=== PATIENT | female | born 1960 | race Caucasian/White ===

== ENCOUNTER 2024-10-30 12:30 | Inpatient (IN) | payer OTHER, SELFPAY ==
[2024-10-30] VITALS (12 sets, daily range): BP systolic 97–150; BP diastolic 51–94; BMI 26.9; BMI 27.9
[2024-10-30] MEDS: ROBITUSSIN AC 10 ML PO ×4 (06:33→18:58)
[2024-10-30] MEDS: DECADRON 6 MG IV (06:45)
[2024-10-30 07:01] LABS: % Basophils 0.6 % (0-2); % Eosinophils 0.4 % (0-6); % Immature Granulocytes 0.5 % (0-0.5); % Lymphocytes 22.5 % (20.5-51.1); % Monocytes 8.9 % (1.7-9.3); % Neutrophils 67.1 % (42.2-75.2); Absolute Basophils 0.1 10^3/uL (0-0.2); Absolute Lymphocytes 1.8 10^3/uL (1.2-3.4); Absolute Monocytes 0.7 10^3/uL (0.1-0.6); Absolute Neutrophils 5.4 10^3/uL (1.4-6.5); Hematocrit 33.8 % (37.0-47.0); Hemoglobin 10.8 g/dL (12.0-16.0); Mean Corpuscular Volume 90.9 fL (81.0-99.0); Mean Platelet Volume 9.8 fL (7.4-10.4); Nucleated Red Blood Cells % 0 %; Platelet Count 296 10^3/uL (130-400); Red Blood Cell Count 3.72 10^6/uL (4.20-5.40); Red Cell Dist. Width 13.8 % (11.5-14.5); White Blood Cell Count 8.1 10^3/uL (4.8-10.8)
[2024-10-30 07:14] LABS: ALT (SGPT) 34 U/L (0-35); AST (SGOT) 37 U/L (14-36); Albumin 3.8 g/dl (3.5-5.0); Alkaline Phosphatase 52 U/L (38-126); Blood Urea Nitrogen 9 mg/dl (7-17); Calcium 8.9 mg/dl (8.4-10.2); Carbon Dioxide 27 mmol/L (22-30); Chloride 106 mmol/L (98-107); Estimated Creatinine Clearance 89 ml/min; Glucose 92 mg/dl (70-99); Magnesium 2.1 mg/dl (1.6-2.3); Potassium 3.6 mmol/L (3.5-5.1); Sodium 140 mmol/L (135-145); Total Bilirubin 0.2 mg/dl (0.2-1.3); Total Protein 6.4 g/dl (6.3-8.2); eGFR > 60.00
[2024-10-30 07:51] LABS: COVID-19 Antigen Negative (Negative)
[2024-10-30] MEDS: ATROVENT NEBULES 1 MG INH (07:51)
[2024-10-30] MEDS: VENTOLIN NEBULES 7.5 MG INH (07:51)
--- NOTE | 2024-10-30 07:54 | ED.GENMED ---
History of Present Illness
General
Chief Complaint: Cough
Source: patient
Exam Limitations: none
Time Seen by Provider: 10/30/24 06:01
Nursing documentation reviewed up to this point in time: agreed with
History of Present Illness
History of Present Illness:
Patient with history of asthma, presents to ED secondary to worsening cough with shortness of breath over the past 10 days. Patient was evaluated by her primary care physician 4 days ago and has been started on Zithromax as well as prednisone,
without improvement in symptoms. Patient has also been using nebulizer at home. Denies fever or chills. Denies headache. Denies sore throat. Denies nausea, vomiting, or diarrhea. Denies rash. Denies back pain. Patient did travel to [place]
over , but states that she was not sick during the trip or shortly afterwards. In addition, patient states that last time she had to come to the hospital with similar symptoms was over 10 years ago.
Past History
Past History
ED Past Medical History: Asthma and Other (Diverticulosis)
ED Past Surgical History: Orthopedic
Social History
Tobacco: Non-smoker
Alcohol: Occasional
Drug: None
Personal:
Living: with family
Employment: Employed
Review of Systems
Review of Systems
Allergies reviewed?: Yes
All Other Systems: ROS reviewed and negative except as documented in HPI and ROS
Constitutional: Reports no symptoms; Denies fever
Respiratory: Reports cough and trouble breathing
Cardiac: Reports no symptoms
ABD/GI: Reports no symptoms; Denies vomiting or diarrhea
Musculoskeletal: Reports no symptoms
Skin: Reports no symptoms
Neurological: Reports no symptoms
Phy Exam
Physical Exam
Physical Exam:
Physical Exam
General: moderate respiratory distress, not acutely ill
Head: nc/at. eomi
Neck: supple. no meningeal signs. normal posterior pharynx
Heart: s1/s2 regular rate and rhythm, no murmur. equal radial pulses.
Lungs: moderate respiratory distress. diminished breath sounds bilaterally
Abdomen: normal bowel sounds. not tender.
Neuro: alert and oriented. no focal neurological deficits
Skin: no rash
Psychiatric: well kept. interactive and cooperative
Extremities: no edema. no calf tenderness.
Course
Orders/Labs/Results
Orders:
Orders
10/30/24 06:18
Dexamethasone Sod Phosphate [Decadron] 6 mg IV NOW STA
Guaifenesin/Codeine Solution [Robitussin AC] 10 ml PO NOW STA
CR Chest - 2 Views Urgent
Comment:
Reason For Exam: cough/sob
10/30/24 06:19
Albuterol Sulfate [Ventolin Nebules] 7.5 mg INH R NOW STA
Ipratropium Nebs [Atrovent Nebules] 1 mg INH R NOW STA
10/30/24 06:33
COVID-19 Antigen Urgent
Source: Nasal Swab
Complete Blood Count/With Diff Urgent
Comprehensive Metabolic Panel Urgent
Magnesium Urgent
Influenza A+B Rapid Molecular Urgent
JESSICA Source: Nasal Swab
Specimen Description:
Respiratory Syncytial Virus Urgent
JESSICA Source: Nasal Swab
Specimen Description:
Date Specimen was Collected: 10/30/24
Time Specimen was Collected: 06:22
10/30/24 09:51
LevoFLOXacin 500 MG/100 ML [Levaquin] 500 mg in 100 ml IV NOW
10/30/24 Lunch
Regular
At Your Request: Full Participation
10/30/24 10:36
Guaifenesin/Codeine Solution [Robitussin AC] 10 ml .ROUTE .[facility]
10/30/24 10:37
Guaifenesin/Codeine Solution [Robitussin AC] 10 ml PO NOW STA
10/30/24 12:11
Admit/Transfer Patient As Directed
Co-Sign Provider:
Level of Care: Inpatient admission
Assign to:: Medical/Surgical
Physician / Group: Mirsky/Hospitalist
Diagnosis: Acute Asthma Exacerbation
Reason for Hospitalization: Acute Asthma Exacerbation
Expected length of stay greater than two midnights?: Yes
ELOS- Estimated Length of Stay in days: 4
I certify the patient meets the requirements for IP care: Yes
PRN Pain Medication Management As Directed
May give lesser potent ordered pain med per pt: Yes
preference::
Protocol:: Medication orders for pain may be administered in a
manner that supports deferring to patient preference
when the pt is:
- Requesting an ordered lesser potent pain medication.
Least to most potent pain medications are defined
as: acetaminophen < NSAID < tramadol < opioids
(morphine, oxycodone, hydromorphone).
- Requesting a lesser dose of the same medication IF
ORDERED.
- Requesting a less intrusive route of administration
if both routes are prescribed by the provider (PO <
IV).
10/30/24 12:13
Code Status As Directed
Resuscitation Status: Full Code
10/30/24 14:14
Bisacodyl [Dulcolax] 10 mg RECTAL [id number] PRN
Docusate W/Senna [Senokot-S] 1 tablet PO BIDPRN PRN
Guaifenesin/Codeine Solution [Robitussin AC] 10 ml PO Q4HPRN PRN
Levalbuterol [Xopenex 0.63 mg Inhalant Solution] 0.63 mg INH R PRN PRN PRN
Polyethylene Glycol Powder [Miralax] 17 grams PO DAILYPRN PRN
10/30/24 14:14
Consult Pulmonary [PULMONARY CONSULT] Routine
Consulting Provider: Lux Lazcano
Was physician already notified: Yes
Sputum Culture [Respiratory Culture/Gram Stain] Routine
JESSICA Source: Sputum
Specimen Description:
Activity As Directed
Activity Level: Out of Bed-Early Mobility
Vital Signs As Directed
Frequency: Per unit guidelines
Xopenex Reason for Use As Directed
Reason for ordering Xopenex instead of Albuterol: tachycardia
O2 Therapy [RESP] Routine
Nasal Cannula Liter Flow: 2 LPM
Titrate/Wean O2 to maintain O2 sat greater than (%): 88
DX Deep Vein Thrombosis Video Routine
10/30/24 16:00
Dexamethasone Sod Phosphate [Decadron] 4 mg IV Q6H
10/30/24 20:00
Budesonide/Formoterol 80/4.5 [Symbicort 80/4.5 Mcg Inhaler] 1 puff INH R BID
Heparin 5,000 units SC Q12
10/30/24 22:54
Urinalysis Reflex To Culture Routine
Date Specimen was Collected: 10/30/24
Time Specimen was Collected: 22:51
10/31/24 05:53
Basic Metabolic Panel IN AM
Complete Blood Count/With Diff IN AM
10/31/24 08:00
Calcium Carbonate [Oscal Adriano 500] 500 mg PO DAILY
Cholecalciferol (Vitamin D3) [VITAMIN D3 (cholecalciferol)] 50 mcg PO DAILY
Desvenlafaxine Succinate [Pristiq] 25 mg PO DAILY
Montelukast Sodium [Singulair] 10 mg PO DAILY
biotin 1,000 mcg PO DAILY
fluticasone propionate 1 spray NASAL DAILY
10/31/24 10:00
LevoFLOXacin 500 MG/100 ML [Levaquin] 500 mg in 100 ml IV Q24H
Abnormal Lab Results
10/30/24
06:33
RBC 3.72 L 10^6/uL
(4.20-5.40)
Hgb 10.8 L g/dL
(12.0-16.0)
Hct 33.8 L %
(37.0-47.0)
MCHC 32.0 L g/dL
(33.0-37.0)
Absolute Monos (auto) 0.7 H 10^3/uL
(0.1-0.6)
AST 37 H U/L
(14-36)
10/30/24 06:33
10/30/24 06:33
Vital Signs
Initial and Last Documented VS:
Initial Vital Signs
Temp Pulse BP Pulse Ox
98.8 F 100 150/76 97
10/30/24 05:19 10/30/24 05:19 10/30/24 05:19 10/30/24 05:19
Last Documented Vital Signs
Temp Pulse Resp BP Pulse Ox
98.1 F 79 17 120/73 97
10/31/24 07:55 10/31/24 07:55 10/31/24 07:55 10/31/24 07:55 10/31/24 07:55
MDM/Problems Addressed
MDM/Problems Addressed:
CXR: NAD. COVID/Flu/RSV negative.
Patient with persistent symptoms, although improved, after 1 hour nebulizer treatment. History and exam consistent with likely an acute bronchitis with underlying asthma exacerbation. Patient will be admitted for further evaluation treatment,
including continued nebulized treatment, IV steroids. Patient will be given Levaquin IV in ED.
*Critical Care Note
Total Time (30-74mins, 75-104mins- exclusive of procedures): Not Applicable
ED Attending Note
-
Portions of this chart may have been created with voice recognition software.� Occasional wrong word or��sound alike� substitutions may have occurred due to the inherent limitations of voice recognition software.
Discharge Plan
Departure
Patient Disposition: Admit
Date of Disposition: 10/30/24
Time of Disposition: 09:53
Admit to: Telemetry
Presentation/result/management discussed w/ accepting MD/DO: Hospitalist
Discharge Problem:
Respiratory distress, Bronchitis, Asthma
Interventions
Interventions:
*Risk Screen - Suicide Last Done: 10/30/24 06:54
*General Assessment Last Done: 10/30/24 06:54
*Neglect/Abuse Screening Last Done: 10/30/24 06:54
ED- Fall Risk Assessment Last Done: 10/30/24 06:54
*ED COVID-19 Vaccine History Last Done: 10/30/24 05:16
*Nursing Disposition Last Done: 10/30/24 13:55
ED- Pulmonary Assessment Last Done: 10/30/24 09:17
Discharge Date and Time
Discharge Date/Time: 10/30/24 13:55
[2024-10-30] MEDS: LEVAQUIN 100 IV (10:12)
--- NOTE | 2024-10-30 10:20 | EDRN ---
Pt coughing a lot and requested more cough medicine at this time.
--- NOTE | 2024-10-30 10:40 | EDRN ---
Dr. Rush in room w/pt at this time.
--- NOTE | 2024-10-30 11:19 | EDRN ---
Pt OOB to BR at this time.
--- NOTE | 2024-10-30 12:41 | EDRN ---
Attempting to call for pt's diet at this time
--- NOTE | 2024-10-30 12:43 | EDRN ---
Diet tray ordered at this time for pt.
--- NOTE | 2024-10-30 12:56 | W.PN.HOSP.TC ---
Today's Communication/Plan
-
steroids. Levaquiin
Assessment / Plan
Assessment / Plan
Hx of asthma dating back to ~age 18
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
Had traveled to [place] in September, Oct 14
Seen by PCP and started on Azithromycin and Prednisone without improvement in symptoms
Asthma is followed by Dr. Valencia at [facility]
Last episode requiring hospitalization was ~10 yrs ago
chronic Rt sided lymphadenopathy post lumpectomy
Bowel resection for diverticulosis 2013
P: empiric Levaquin
Decadron
Pulm consult
see dictated note
full code
Anticipated Discharge: > 48 hours
Subjective/Interval History
-
Date of Service: October 30, 2024
Cough with sob
Objective Data
-
Labs:
Laboratory Results
10/30/24
06:33
WBC 8.1
Hgb 10.8 L
Hct 33.8 L
Plt Count 296
Sodium 140
Potassium 3.6
Chloride 106
Carbon Dioxide 27
BUN 9
Creatinine 0.6
Glucose 92
Calcium 8.9
Total Bilirubin 0.2
AST 37 H
ALT 34
Alkaline Phosphatase 52
Vital Signs:
Vital Signs
Temp Pulse Resp BP Pulse Ox
98.8 F 97 17 116/76 92
10/30/24 05:19 10/30/24 12:00 10/30/24 12:00 10/30/24 12:00 10/30/24 11:00
Review of Systems
-
History Source: Patient and Family ( at bedside)
Constitutional: Denies Fever
EENT: Reports No Symptoms Reported
Respiratory: Reports Cough, Trouble Breathing and Wheezing
Cardiac: Reports No Symptoms; Denies Chest Pain
Abdomen/GI: Reports No Symptoms
Musculoskeletal: Reports No Symptoms
Physical Exam
-
General: Well Developed, Well Nourished and Appears in Distress
HEENT: Normocephalic, Atraumatic and Moist Mucous Membranes
Respiratory: Wheezes (poor air movement with mid-end expiratory wheeze and coughing spasms on forced expiration)
Cardiac: Regular Rhythm and S1/S2
GI: Soft, Nontender and Nondistended
Musculoskeletal: No Clubbing, No Cyanosis and No Edema
--- NOTE | 2024-10-30 14:35 | PTCARENOTE ---
Received patient from ED. Patient here for Acute Bronchitis and Asthma Exacerbation. Oriented to unit. AAOX3.
[2024-10-30] MEDS: TYLENOL 650 MG PO ×2 (14:54→18:58)
[2024-10-30] MEDS: XOPENEX 0.63 MG INHALANT SOLUTION INH (14:59)
--- NOTE | 2024-10-30 16:19 | CON.PUL ---
Consultation
Consultation Request
Date/Time Consultation Requested: 10/30/2024
Date/Time Consultation Performed: 10/30/2024
Requesting Provider: Dr. Rush
Performing Provider: Dr. Lux Tran
Reason for Consultation: Acute asthma exacerbation
Medical History
-
History of Present Illness:
64-year-old woman with history of asthma since age 18, compliance with medication, develop cough about 9 to 10 days ago. She recently returned from [place] on October 14. She was prescribed a course of azithromycin and a prednisone without
improvement.
She has chronic asthma being followed at [facility] by Dr. Valencia.
She states that her last hospital stay for asthma was about 10 years ago.
Main symptom is coughing, nasal congestion, postnasal drip, frequent sensation of clearing throat.
is sick after coming from a trip.
Past Medical History
Past Medical History: Other (See assessment and plan)
Social History
Tobacco: Non-smoker
Alcohol: None
Drug: None
Family History
Family History: Reviewed & Not Pertinent
Allergies / Home Medications
Allergies
Allergy/AdvReac Type Severity Reaction Status Date / Time
amoxicillin trihydrate Allergy Anaphylaxis Verified 10/30/24 05:15
[From Augmentin]
Penicillins Allergy Hives Verified 10/30/24 05:15
potassium clavula Allergy Anaphylaxis Verified 10/30/24 05:15
*RETIRED-08/04/12
[From Augmentin]
vancomycin Allergy Anaphylaxis Verified 10/30/24 05:15
Home Medications
�Medication �Instructions �Recorded �Confirmed �Last Taken �Type
biotin 1,000 mcg chewable tablet 1,000 mcg PO DAILY Supplement 08/06/23 10/30/24 Unknown History
budesonide-formoterol HFA 80 1 puff inhalation BID 08/06/23 10/30/24 Unknown History
mcg-4.5 mcg/actuation aerosol Lung/Breathing Issues
inhaler (Symbicort)
calcium carbonate (Calcium 600) 600 mg PO DAILY Supplement 08/06/23 10/30/24 Unknown History
desvenlafaxine succinate 25 mg 25 mg PO DAILY Depression 08/06/23 10/30/24 Unknown History
tablet,extended release 24 hr
(Pristiq)
levalbuterol HCl 0.63 mg/3 mL 0.63 mg inhalation PRN PRN SOB 08/06/23 10/30/24 Unknown History
solution for nebulization
montelukast 10 mg tablet 10 mg PO DAILY Lung/Breathing 08/06/23 10/30/24 Unknown History
(Singulair) Issues
cholecalciferol (vitamin D3) 50 50 mcg PO DAILY Supplement 10/30/24 10/30/24 Unknown History
mcg (2,000 unit) tablet
fluticasone propionate 50 1 spray intranasal DAILY Allergies 10/30/24 10/30/24 Unknown History
mcg/actuation nasal
spray,suspension
Review of Systems
-
History Source: Patient
All other systems: Negative unless noted
Vitals / Labs / Diagnostic Testing
Vital Signs
Temp Pulse Resp BP Pulse Ox
99.1 F 104 18 120/55 97
10/30/24 14:34 10/30/24 14:59 10/30/24 14:59 10/30/24 14:34 10/30/24 14:59
Lab Data
10/30/24 06:33
10/30/24 06:33
Microbiology
10/30/24 06:33 Nasal Swab Influenza Types A & B (GERRI) - Final
Negative for Influenza A & B, NAAT
Negative results must be combined with clinical observations
and patient history.
Nucleic Acid Amplification test (NAAT)performed on the
[employer] platform.
10/30/24 06:33 Nasal Swab Respiratory Syncytial Virus Culture - Final
Negative for Respiratory Syncytial Virus.
A false negative result may be obtained with a specimen
collected early in the acute phase. If symptoms persist, a
new specimen should be tested.
Diagnostic Testing:
Physical Exam
-
HEENT: Normocephalic
Cardiovascular: S1/S2
Respiratory: Wheeze and Rhonchi
GI: Soft and Non Distended
Neurology: Awake, AO x 3 and No Motor Deficits
Skin: Warm
General: Comfortable
Assessment
-
64-year-old woman with history of longstanding asthma, usually well-controlled. Started with symptoms including coughing, chest congestion and shortness of breath about 9 days ago. In the outpatient setting received prednisone and azithromycin
without improvement. She is here for further evaluation.
Acute asthma exacerbation.
Not documented peripheral eosinophilia
Chest x-ray 10/30/2024: Mild right hemidiaphragm elevation. Minimal left basilar opacity suggestive of atelectasis.
RSV negative
Influenza negative
COVID-negative
Normocytic anemia unclear etiology
Conditions present prior admission:
Chronic asthma since age 18 followed at [facility]
Symbicort/montelukast/Flonase
Prior history of right breast lumpectomy
History of bowel resection for diverticulosis 2013
Assessment and plan:
Agree with current plan
IV corticosteroids
Hold Symbicort: With significant coughing patient unable to perform adequate maneuver
Transition to Pulmicort twice a day
DuoNebs 4 times a day
Patient has a nebulizer at home-likely I would recommend to discharge her on these medications until symptoms clear.
Continue montelukast
Continue antitussives
Cepacol lozenges
Loratadine as the patient has postnasal drip
There is no Flonase or Astelin available in the hospital.
-
So far no evidence for pneumonia on chest x-ray, patient afebrile without leukocytosis. Will complete 5 days of antibiotics with Levaquin only. If continues to improve consider transition to oral in the next 24 hours.
Infectious workup so far negative
Sputum culture pending
Antitussives as needed
-
DVT prophylaxis-heparin subcu.
-
After discharge patient will continue to follow-up with [facility].
[2024-10-30] MEDS: DECADRON 4 MG IV ×2 (17:23→21:28)
[2024-10-30] MEDS: ANESTHETIC LOZENGE 1 LOZENGE PO (18:58)
[2024-10-30] MEDS: CLARITIN 10 MG PO (18:58)
[2024-10-30] MEDS: DUONEB 3 ML INH (20:01)
[2024-10-30] MEDS: PULMICORT 0.5 MG INH (20:01)
[2024-10-30] MEDS: MELATONIN 5 MG PO (22:51)
[2024-10-30 23:11] LABS: Urine Albumin Negative (Neg - Trace); Urine Bilirubin Negative (Negative); Urine Character Clear (Clear); Urine Color Straw; Urine Glucose Negative (Negative); Urine Ketone Negative (Negative); Urine Leukocyte Negative (Negative); Urine Nitrite Negative (Negative); Urine Occult Blood Negative (Negative); Urine Specific Gravity 1.005 (<1.030); Urine Urobilinogen Negative (Neg - 1+)
[2024-10-31] MEDS: TYLENOL 650 MG PO ×6 (00:36→20:44)
[2024-10-31] MEDS: ROBITUSSIN AC 10 ML PO ×6 (00:36→20:44)
[2024-10-31] MEDS: DECADRON 4 MG IV ×4 (04:34→21:41)
[2024-10-31] MEDS: ANESTHETIC LOZENGE 1 LOZENGE PO ×2 (04:35→21:46)
[2024-10-31] MEDS: XOPENEX 0.63 MG INHALANT SOLUTION INH (04:37)
[2024-10-31 06:31] LABS: % Basophils 0.1 % (0-2); % Immature Granulocytes 1.1 % (0-0.5); % Lymphocytes 11.3 % (20.5-51.1); % Monocytes 3.7 % (1.7-9.3); % Neutrophils 83.8 % (42.2-75.2); Absolute Immature Granulocytes 0.1 10^3/uL (0-0.05); Absolute Lymphocytes 0.9 10^3/uL (1.2-3.4); Absolute Monocytes 0.3 10^3/uL (0.1-0.6); Absolute Neutrophils 6.3 10^3/uL (1.4-6.5); Hematocrit 33.7 % (37.0-47.0); Hemoglobin 10.9 g/dL (12.0-16.0); Mean Corp Hgb Conc. 32.3 g/dL (33.0-37.0); Mean Corpuscular Hgb 28.8 pg (27.0-31.0); Mean Corpuscular Volume 89.2 fL (81.0-99.0); Mean Platelet Volume 9.8 fL (7.4-10.4); Nucleated Red Blood Cells % 0 %; Platelet Count 302 10^3/uL (130-400); Red Blood Cell Count 3.78 10^6/uL (4.20-5.40); Red Cell Dist. Width 13.9 % (11.5-14.5); White Blood Cell Count 7.6 10^3/uL (4.8-10.8)
[2024-10-31 07:07] LABS: Blood Urea Nitrogen 9 mg/dl (7-17); Calcium 8.8 mg/dl (8.4-10.2); Carbon Dioxide 27 mmol/L (22-30); Chloride 104 mmol/L (98-107); Estimated Creatinine Clearance 101 ml/min; Glucose 138 mg/dl (70-99); Sodium 139 mmol/L (135-145); eGFR > 60.00
[2024-10-31] MEDS: DUONEB 3 ML INH ×4 (07:45→19:13)
[2024-10-31] MEDS: PULMICORT 0.5 MG INH ×2 (07:45→19:13)
[2024-10-31 07:55] VITALS: BP 120/73
[2024-10-31] MEDS: CLARITIN 10 MG PO (08:34)
[2024-10-31] MEDS: SINGULAIR 10 MG PO (08:34)
[2024-10-31] MEDS: OSCAL CAL 500 500 MG PO (08:34)
[2024-10-31] MEDS: PRISTIQ 25 MG PO (08:34)
[2024-10-31] MEDS: VITAMIN D3 (cholecalciferol) 50 MCG PO (08:34)
[2024-10-31] MEDS: LEVAQUIN 100 IV (11:14)
--- NOTE | 2024-10-31 12:50 | W.PN.PUL3 ---
Today's Communication / Plan
-
Transition to oral antibiotics and complete 5 days
Continue nebulizer-recommend maintaining this at home until she improves. Then can transition back to her Symbicort
Continue dexamethasone without change
Hopefully can transition to prednisone tomorrow if clinically improved
Assessment
-
64-year-old woman with history of longstanding asthma, usually well-controlled. Started with symptoms including coughing, chest congestion and shortness of breath about 9 days ago. In the outpatient setting received prednisone and azithromycin
without improvement. She is here for further evaluation.
Acute asthma exacerbation-suspect tracheobronchitis.
Not documented peripheral eosinophilia
Chest x-ray 10/30/2024: Mild right hemidiaphragm elevation. Minimal left basilar opacity suggestive of atelectasis.
RSV negative
Influenza negative
COVID-negative
Normocytic anemia unclear etiology
Conditions present prior admission:
Chronic asthma since age 18 followed at [facility]
Symbicort/montelukast/Flonase
Prior history of right breast lumpectomy
History of bowel resection for diverticulosis 2013
Assessment and plan:
Continue with current plan-patient reports that she is clinically improved.
IV corticosteroids-dexamethasone 4 mg IV every 6 without change. If continues to improve may consider transition to prednisone tomorrow. Not significantly bronchospastic but coughing.
Hold Symbicort: With significant coughing patient unable to perform adequate maneuver
Continue Pulmicort nebulizer
DuoNebs 4 times a day
Patient has a nebulizer at home-likely I would recommend to discharge her on these medications until symptoms clear.
Continue montelukast
Continue antitussives
Cepacol lozenges
Loratadine as the patient has postnasal drip
There is no Flonase or Astelin available in the hospital.
-
So far no evidence for pneumonia on chest x-ray, patient afebrile without leukocytosis. Will complete 5 days of antibiotics with Levaquin only. Will transition to oral Levaquin today.
Infectious workup so far negative
Sputum culture pending
Antitussives as needed
-
DVT prophylaxis-heparin subcu.
-
After discharge patient will continue to follow-up with [facility].
Subjective Data
-
Date of Service:
Date of Service: October 31, 2024
Chief Complaint: Pulmonary Follow Up (Acute asthma exacerbation-possible bronchitis)
Subjective:
Cough, shortness of breath improved.
No significant phlegm production
Denies hemoptysis
Review of Systems
General: Fever (n)
Cardiopulmonary: Dyspnea, Cough and Wheezing
GI: Abdominal Pain (n) and Nausea (n)
Neuro: Headache (n)
Objective Data
Data Reviewed
Vital Signs / I&O / Oxygen:
Vital Signs
Temp Pulse Resp BP Pulse Ox
98.1 F 107 16 120/73 94
10/31/24 07:55 10/31/24 12:14 10/31/24 12:14 10/31/24 07:55 10/31/24 12:14
Intake and Output
10/30/24 10/31/24 11/01/24
06:59 06:59 06:59
Intake Total 1320 / 1320
Balance 1320 / 1320
SaO2 94
Physical Exam
General: Comfortable
HEENT: Normocephalic
Cardiovascular: S1-S2
Respiratory: Wheeze and Non-Labored Respirations
GI: Soft and Non Distended
Neurology: Awake, Alert, AO x 3 and No Motor Deficits
Skin: Warm
Labs/Micro/Reports
Lab Data
10/31/24 05:53
10/31/24 05:53
Microbiology
10/30/24 06:33 Nasal Swab Influenza Types A & B (GERRI) - Final
Negative for Influenza A & B, NAAT
Negative results must be combined with clinical observations
and patient history.
Nucleic Acid Amplification test (NAAT)performed on the
[employer] platform.
10/30/24 06:33 Nasal Swab Respiratory Syncytial Virus Culture - Final
Negative for Respiratory Syncytial Virus.
A false negative result may be obtained with a specimen
collected early in the acute phase. If symptoms persist, a
new specimen should be tested.
--- NOTE | 2024-10-31 14:20 | CM ---
CM reviewed chart. Pt admitted for acute bronchitis with acute asthma exacerbation currently- cont duo-nebs, iv steroids and inhaler. 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 Encourage IS use at the top of every hour. Anticipate home, no needs at dc.
Family to transport.
CM/SW will continue to follow to ensure a safe and timely discharge.
[2024-10-31 15:27] VITALS: BP 108/73
--- NOTE | 2024-10-31 15:43 | W.PN.HOSP.TC ---
Today's Communication/Plan
-
hopefully begin cautious taper of steroids next 24 hrs. Await sputum cx
Assessment / Plan
Assessment / Plan
Hx of asthma dating back to ~age 18
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
Had traveled to [place] in September, returning Oct 14
Seen by PCP and started on Azithromycin and Prednisone without improvement in symptoms
Asthma is followed by Dr. Valencia at [facility]
Last episode requiring hospitalization was ~10 yrs ago
Raising thick, discolored phlegm, requested nurse send sample to lab for analysis. Moving air much better than yesterday, but still with significant coughing spasms. Pending response over next 24 would like to begin taper of steroids
chronic Rt sided lymphadenopathy post lumpectomy
Bowel resection for diverticulosis 2013
Anemia
Hgb 10.9 lower than would expect, will order Fe studies
P: empiric Levaquin pending cx data
Decadron
Pulm consult
full code
Anticipated Discharge: 24 - 48 hours
Subjective/Interval History
-
Date of Service: October 31, 2024
Still sob, but believes a little better than yesterday
Objective Data
-
Labs:
Laboratory Results
10/31/24
05:53
WBC 7.6
Hgb 10.9 L
Hct 33.7 L
Plt Count 302
Sodium 139
Potassium 4.0
Chloride 104
Carbon Dioxide 27
BUN 9
Creatinine 0.6
Glucose 138 H
Calcium 8.8
Vital Signs:
Vital Signs
Temp Pulse Resp BP Pulse Ox
98.2 F 80 17 108/73 97
10/31/24 15:27 10/31/24 15:27 10/31/24 15:27 10/31/24 15:27 10/31/24 15:27
I&O
10/30/24 10/31/24 11/01/24
06:59 06:59 06:59
Intake Total 1320 / 1320
Balance 1320 / 1320
Review of Systems
-
History Source: Patient
Constitutional: Denies Fever
EENT: Reports No Symptoms Reported
Respiratory: Reports Cough, Trouble Breathing and Wheezing
Cardiac: Reports No Symptoms; Denies Chest Pain
Abdomen/GI: Reports No Symptoms
Musculoskeletal: Reports No Symptoms
Physical Exam
-
General: Well Developed, Well Nourished and Appears in Distress
HEENT: Normocephalic, Atraumatic and Moist Mucous Membranes
Respiratory: Wheezes (improved air movement, wheezes ar more prominent, coughing nw only on forced expiration)
Cardiac: Regular Rhythm and S1/S2
GI: Soft, Nontender and Nondistended
Musculoskeletal: No Clubbing, No Cyanosis and No Edema
[2024-10-31] MEDS: MELATONIN 5 MG PO (21:41)
[2024-10-31 23:19] VITALS: BP 135/70
[2024-11-01] MEDS: TYLENOL 650 MG PO ×5 (00:48→21:06)
[2024-11-01] MEDS: ROBITUSSIN AC 10 ML PO ×5 (00:48→21:07)
[2024-11-01] MEDS: XOPENEX 0.63 MG INHALANT SOLUTION INH (01:58)
[2024-11-01] MEDS: DECADRON 4 MG IV ×4 (03:00→21:07)
[2024-11-01 05:51] LABS: Blood Urea Nitrogen 11 mg/dl (7-17); Carbon Dioxide 30 mmol/L (22-30); Chloride 105 mmol/L (98-107); Estimated Creatinine Clearance 101 ml/min; Glucose 124 mg/dl (70-99); Iron 59 ug/dl (37-170); Potassium 4.9 mmol/L (3.5-5.1); Sodium 138 mmol/L (135-145); eGFR > 60.00
[2024-11-01 06:01] LABS: Percent Saturation 21 % (20-50); Total Iron Binding Capacity 274 ug/dl (265-497)
[2024-11-01 06:28] LABS: Ferritin 37.9 ng/ml (11.1-264.0)
[2024-11-01 06:59] LABS: Vitamin B12 458 pg/ml (239-931)
[2024-11-01] MEDS: PULMICORT 0.5 MG INH ×2 (07:14→19:39)
[2024-11-01] MEDS: DUONEB 3 ML INH ×4 (07:14→19:39)
[2024-11-01] MEDS: PRISTIQ 25 MG PO (07:34)
[2024-11-01] MEDS: SINGULAIR 10 MG PO (07:34)
[2024-11-01] MEDS: CLARITIN 10 MG PO (07:35)
[2024-11-01] MEDS: VITAMIN D3 (cholecalciferol) 50 MCG PO (07:35)
[2024-11-01] MEDS: OSCAL CAL 500 500 MG PO (07:35)
[2024-11-01] MEDS: LEVAQUIN 500 MG PO (07:36)
[2024-11-01 07:45] VITALS: BP 121/70
[2024-11-01 08:08] LABS: % Basophils 0.1 % (0-2); % Lymphocytes 11.8 % (20.5-51.1); % Monocytes 5.1 % (1.7-9.3); Absolute Immature Granulocytes 0.1 10^3/uL (0-0.05); Absolute Lymphocytes 1.2 10^3/uL (1.2-3.4); Absolute Monocytes 0.5 10^3/uL (0.1-0.6); Absolute Neutrophils 8.2 10^3/uL (1.4-6.5); Hemoglobin 11.4 g/dL (12.0-16.0); Mean Corp Hgb Conc. 31.7 g/dL (33.0-37.0); Mean Corpuscular Hgb 28.6 pg (27.0-31.0); Mean Corpuscular Volume 90.2 fL (81.0-99.0); Mean Platelet Volume 9.5 fL (7.4-10.4); Nucleated Red Blood Cells % 0 %; Platelet Count 320 10^3/uL (130-400); Red Blood Cell Count 3.99 10^6/uL (4.20-5.40)
--- NOTE | 2024-11-01 09:09 | W.PN.PUL.V3 ---
Today's Communication / Plan
-
No change in steroids
Antitussives
Intensify mucolytic's
Continue nebulizers
Outpatient pulmonary follow-up
Assessment
-
64-year-old woman with history of longstanding asthma, usually well-controlled. Started with symptoms including coughing, chest congestion and shortness of breath about 9 days ago. In the outpatient setting received prednisone and azithromycin
without improvement. She is here for further evaluation.
Acute asthma exacerbation-suspect tracheobronchitis.
Not documented peripheral eosinophilia
Chest x-ray 10/30/2024: Mild right hemidiaphragm elevation. Minimal left basilar opacity suggestive of atelectasis.
RSV negative
Influenza negative
COVID-negative
Normocytic anemia unclear etiology
Conditions present prior admission:
Chronic asthma since age 18 followed at [facility]
Symbicort/montelukast/Flonase
Prior history of right breast lumpectomy
History of bowel resection for diverticulosis 2013
Plan
Respiratory status still somewhat tenuous with coughing paroxysms, difficulties mobilizing secretions
Supplemental oxygen as needed
Mucolytic's
Singulair continues
No change in Decadron 4 mg IV every 6 hours
On Symbicort at home-on hold
Claritin continues
Pulmicort nebulizers
DuoNebs
Antitussives
Analgesia per primary service
Saline nasal irrigations
Check cultures
Levofloxacin-finite course
DVT prophylaxis-heparin subcu.
Would recommend LAMA added to regiment and consideration towards Biologics-reviewed with patient
Reviewed with nursing as well as primary team
After discharge patient will continue to follow-up with [facility]-offered local [id number] followed with Dr. Osullivan-states did not get return phone calls from nursing in front services agent in a timely manner that is why she
transferred-she would prefer to be local
Subjective Data
-
Date of Service:
Date of Service: November 01, 2024
Chief Complaint: Pulmonary Follow Up (Acute asthma exacerbation-possible bronchitis) and Dyspnea Follow Up
Subjective:
Patient states that she had a rough night, chest congestion, 'choking' on her mucus, still with some wheezing, no abdominal pain, complains of chest wall pain from coughing-would like to try ibuprofen
Review of Systems
General: Other (Per HPI)
Objective Data
Data Reviewed
Vital Signs / I&O:
Vital Signs
Temp Pulse Resp BP Pulse Ox
97.9 F 80 16 121/70 98
10/31/24 23:19 11/01/24 07:45 11/01/24 07:45 11/01/24 07:45 11/01/24 07:45
Intake and Output
10/31/24 11/01/24 11/02/24
06:59 06:59 06:59
Intake Total 1320 / 1320 1620 / 1620
Balance 1320 / 1320 1620 / 1620
SaO2: 98
Physical Exam
General: Respiratory Distress (n) and Comfortable
HEENT: Normocephalic
Cardiovascular: Regular Rhythm and Murmur (n)
Respiratory: Wheeze (Diffuse forced expiratory), Non-Labored Respirations and Accessory Resp Muscle Use (n)
GI: Soft and Non Distended
Neurology: Awake, Alert, AO x 3 and No Motor Deficits
Skin: Warm, Good Color, Cyanosis (n), Jaundice (n) and Rash (n)
Labs/Micro/Reports
Lab Data
11/01/24 05:05
11/01/24 05:05
Microbiology
10/31/24 11:53 Sputum Gram Stain - Preliminary
10/30/24 06:33 Nasal Swab Influenza Types A & B (GERRI) - Final
Negative for Influenza A & B, NAAT
Negative results must be combined with clinical observations
and patient history.
Nucleic Acid Amplification test (NAAT)performed on the
[employer] platform.
10/30/24 06:33 Nasal Swab Respiratory Syncytial Virus Culture - Final
Negative for Respiratory Syncytial Virus.
A false negative result may be obtained with a specimen
collected early in the acute phase. If symptoms persist, a
new specimen should be tested.
[2024-11-01] MEDS: MUCINEX 1200 MG PO (09:35)
[2024-11-01] MEDS: ANESTHETIC LOZENGE 1 LOZENGE PO (10:38)
--- NOTE | 2024-11-01 12:56 | W.PN.HOSP.TC ---
Today's Communication/Plan
-
continue IV steroids without change
continue Abx
mucolytics/nebs etc as outlined
Assessment / Plan
Assessment / Plan
Assessment:
Acute asthma exacerbation, suspected tracheobronchitis
Chronic asthma since age 18 followed at [facility]
- ongoing respiratory symptoms with coughing, difficult to mobilize mucous
- continue IV steroids
- continue Levaquin x 5 days
- continue pulmicort/nebs
- continue anti-tussives, IS, Acapella
- analgesia
- continue Singulair. Holding home Symbicort/Flonase
Prior history of right breast lumpectomy
History of bowel resection for diverticulosis 2013
Anemia
- indices ok
- OP f/u
DVT ppx: SC heparin
Code: Full
Anticipated Discharge: 24 - 48 hours
Subjective/Interval History
-
Date of Service: November 01, 2024
reports congestion, 'choking' on mucous, reports chest/abdomen discomfort in setting of cough
no fevers
Objective Data
-
Labs:
Laboratory Results
11/01/24
05:05
WBC 10.0
Hgb 11.4 L
Hct 36.0 L
Plt Count 320
Sodium 138
Potassium 4.9
Chloride 105
Carbon Dioxide 30
BUN 11
Creatinine 0.6
Glucose 124 H
Calcium 9.0
Vital Signs:
Vital Signs
Temp Pulse Resp BP Pulse Ox
97.9 F 83 15 121/70 92
10/31/24 23:19 11/01/24 11:12 11/01/24 11:12 11/01/24 07:45 11/01/24 11:12
I&O
10/31/24 11/01/24 11/02/24
06:59 06:59 06:59
Intake Total 1320 / 1320 1620 / 1620
Balance 1320 / 1320 1620 / 1620
Physical Exam
-
General: No Apparent Distress
HEENT: Normocephalic and Atraumatic
Respiratory: Wheezes and Decreased Breath Sounds
Cardiac: Regular Rhythm and S1/S2
Genito-urinary: No Costovertebral Tender
Musculoskeletal: No Edema
Neuro: AO x 3
Hematologic / Lymphatic: No Lymphadenopathy
Psych: Calm
Data Reviewed
-
Total Time Spent with Patient (in minutes): 42
Labs: Labs Reviewed by me
[2024-11-01] MEDS: TESSALON PERLES 200 MG PO ×3 (14:25→23:08)
--- NOTE | 2024-11-01 15:46 | CM ---
Spoke with pt in room . She lives with Regan . She is independent.
She has a Nebulizer at home.
Offered Vn she declined need.
PLAN Home no needs
[2024-11-01 16:11] VITALS: BP 118/65
[2024-11-01] MEDS: MELATONIN 5 MG PO (21:06)
[2024-11-01 23:00] VITALS: BP 118/64
[2024-11-02] MEDS: XOPENEX 0.63 MG INHALANT SOLUTION INH (02:49)
[2024-11-02] MEDS: TYLENOL 650 MG PO ×4 (02:57→22:43)
[2024-11-02] MEDS: ROBITUSSIN AC 10 ML PO ×4 (02:58→19:39)
[2024-11-02] MEDS: DECADRON 4 MG IV ×4 (03:00→22:59)
[2024-11-02 07:26] LABS: Hematocrit 36.8 % (37.0-47.0); Hemoglobin 11.8 g/dL (12.0-16.0); Mean Corp Hgb Conc. 32.1 g/dL (33.0-37.0); Mean Corpuscular Hgb 28.8 pg (27.0-31.0); Mean Corpuscular Volume 89.8 fL (81.0-99.0); Mean Platelet Volume 9.3 fL (7.4-10.4); Platelet Count 338 10^3/uL (130-400); Red Cell Dist. Width 13.9 % (11.5-14.5); White Blood Cell Count 12.7 10^3/uL (4.8-10.8)
[2024-11-02] MEDS: PULMICORT 0.5 MG INH ×2 (07:55→19:14)
[2024-11-02] MEDS: DUONEB 3 ML INH ×4 (07:55→19:14)
[2024-11-02 08:09] LABS: Blood Urea Nitrogen 12 mg/dl (7-17); Calcium 8.8 mg/dl (8.4-10.2); Carbon Dioxide 28 mmol/L (22-30); Chloride 104 mmol/L (98-107); Estimated Creatinine Clearance 101 ml/min; Glucose 116 mg/dl (70-99); Potassium 4.6 mmol/L (3.5-5.1); Sodium 139 mmol/L (135-145); eGFR > 60.00
[2024-11-02] MEDS: SINGULAIR 10 MG PO (08:20)
[2024-11-02] MEDS: PRISTIQ 25 MG PO (08:20)
[2024-11-02] MEDS: LEVAQUIN 500 MG PO (08:20)
[2024-11-02] MEDS: OSCAL CAL 500 500 MG PO (08:20)
[2024-11-02] MEDS: VITAMIN D3 (cholecalciferol) 50 MCG PO (08:21)
[2024-11-02] MEDS: CLARITIN 10 MG PO (08:21)
[2024-11-02] MEDS: OCEAN, SALINE MIST 2 SPRAYS NASAL (08:34)
[2024-11-02 08:42] VITALS: BP 115/80
--- NOTE | 2024-11-02 09:49 | W.PN.PUL.V3 ---
Today's Communication / Plan
-
Decrease Decadron
Hopefully change to prednisone 60 mg daily with slow taper in the next 24 hours
Assessment
-
64-year-old woman with history of longstanding asthma, usually well-controlled. Started with symptoms including coughing, chest congestion and shortness of breath about 9 days ago. In the outpatient setting received prednisone and azithromycin
without improvement. She is here for further evaluation.
Acute asthma exacerbation-suspect tracheobronchitis.
Not documented peripheral eosinophilia
Chest x-ray 10/30/2024: Mild right hemidiaphragm elevation. Minimal left basilar opacity suggestive of atelectasis.
RSV negative
Influenza negative
COVID-negative
Normocytic anemia unclear etiology
Conditions present prior admission:
Chronic asthma since age 18 followed at [facility]
Symbicort/montelukast/Flonase
Prior history of right breast lumpectomy
History of bowel resection for diverticulosis 2013
Plan
Respiratory status improved but continues with coughing paroxysms, difficulties mobilizing secretions
Supplemental oxygen as needed-attempt to wean to room air
Mucolytic's
Singulair continues
Decadron-decrease to every 8 hours-hopefully can change to prednisone 60 mg with slow taper in the next 24 hours
On Symbicort at home-on hold
Claritin continues
Pulmicort nebulizers
DuoNebs
Antitussives
Analgesia per primary service
Saline nasal irrigations
Check cultures
Levofloxacin-finite course
DVT prophylaxis-heparin subcu.
Would recommend LAMA added to regiment and consideration towards Biologics-reviewed with patient-i.e. Symbicort plus Spiriva or changed to Trelegy 200 or Breztri
Reviewed with nursing as well as primary team
After discharge patient will continue to follow-up with [facility]-offered local [id number] followed with Dr. 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
transferred-she would prefer to be local
Subjective Data
-
Date of Service:
Date of Service: November 02, 2024
Chief Complaint: Pulmonary Follow Up (Acute asthma exacerbation-possible bronchitis) and Dyspnea Follow Up
Subjective:
Feels better, slept better, still has some chest congestion, difficulties mobilizing secretions, still with some wheezing, no abdominal pain, rib pain from coughing improved
Review of Systems
General: Other (Per HPI)
Objective Data
Data Reviewed
Vital Signs / I&O:
Vital Signs
Temp Pulse Resp BP Pulse Ox
99.1 F 75 16 115/80 98
11/01/24 23:00 11/02/24 08:42 11/02/24 08:42 11/02/24 08:42 11/02/24 08:42
Intake and Output
11/01/24 11/02/24 11/03/24
06:59 06:59 06:59
Intake Total 1620 / 1620 480 / 480
Balance 1620 / 1620 480 / 480
SaO2: 98
Physical Exam
General: Respiratory Distress (n) and Comfortable
HEENT: Normocephalic
Cardiovascular: Regular Rhythm and Murmur (n)
Respiratory: Wheeze (Diffuse forced expiratory), Non-Labored Respirations and Accessory Resp Muscle Use (n)
GI: Soft and Non Distended
Neurology: Awake, Alert, AO x 3 and No Motor Deficits
Skin: Warm, Good Color, Cyanosis (n), Jaundice (n) and Rash (n)
Labs/Micro/Reports
Lab Data
11/02/24 07:00
11/02/24 07:00
Microbiology
10/31/24 11:53 Sputum Respiratory Culture - Final
Usual Respiratory Sachi
10/31/24 11:53 Sputum Gram Stain - Final
10/30/24 06:33 Nasal Swab Influenza Types A & B (GERRI) - Final
Negative for Influenza A & B, NAAT
Negative results must be combined with clinical observations
and patient history.
Nucleic Acid Amplification test (NAAT)performed on the
[employer] platform.
10/30/24 06:33 Nasal Swab Respiratory Syncytial Virus Culture - Final
Negative for Respiratory Syncytial Virus.
A false negative result may be obtained with a specimen
collected early in the acute phase. If symptoms persist, a
new specimen should be tested.
[2024-11-02] MEDS: TESSALON PERLES 200 MG PO ×3 (10:25→22:44)
--- NOTE | 2024-11-02 11:21 | W.PN.HOSP.TC ---
Today's Communication/Plan
-
Reduce IV Decadron 4mg q8h
continue Levaquin
Prn Motrin (+ GI prophylaxis)
Prn Tylenol
Follow pulm recs
Assessment / Plan
Assessment / Plan
Assessment:
Acute asthma exacerbation, suspected tracheobronchitis
Chronic asthma since age 18 followed at [facility]
- ongoing respiratory symptoms with coughing, difficult to mobilize mucous
- continue IV Decadron, reduced to q8h dosing
- continue Levaquin, day 4/
- continue pulmicort/nebs
- continue anti-tussives, IS, Acapella
- analgesia (prn Motrin, prn Tylenol)
- continue Singulair. Holding home Symbicort/Flonase
- appreciate Pulmonary recs
Prior history of right breast lumpectomy
History of bowel resection for diverticulosis 2013
Anemia
- indices ok
- OP f/u
DVT ppx: SC heparin
Code: Full
Anticipated Discharge: 24 - 48 hours
Subjective/Interval History
-
Date of Service: November 02, 2024
Overall feeling better, better sleep, less coughing spells, no chest/abd pain overall from coughing unlike yesterday
no fever/chills
Objective Data
-
Labs:
Laboratory Results
11/02/24
07:00
WBC 12.7 H
Hgb 11.8 L
Hct 36.8 L
Plt Count 338
Sodium 139
Potassium 4.6
Chloride 104
Carbon Dioxide 28
BUN 12
Creatinine 0.6
Glucose 116 H
Calcium 8.8
Vital Signs:
Vital Signs
Temp Pulse Resp BP Pulse Ox
99.1 F 75 16 115/80 98
11/01/24 23:00 11/02/24 08:42 11/02/24 08:42 11/02/24 08:42 11/02/24 09:49
I&O
11/01/24 11/02/24 11/03/24
06:59 06:59 06:59
Intake Total 1620 / 1620 480 / 480
Balance 1620 / 1620 480 / 480
Physical Exam
-
General: No Apparent Distress
HEENT: Normocephalic and Atraumatic
Respiratory: Wheezes and Decreased Breath Sounds
Cardiac: Regular Rhythm and S1/S2
GI: Soft and Nontender
Genito-urinary: No Costovertebral Tender
Neuro: AO x 3
Hematologic / Lymphatic: No Lymphadenopathy
Psych: Calm
Data Reviewed
-
Total Time Spent with Patient (in minutes): 42
Labs: Labs Reviewed by me
[2024-11-02] MEDS: PROTONIX 20 MG PO (12:39)
[2024-11-02] MEDS: MOTRIN 200 MG PO ×2 (12:40→19:38)
[2024-11-02 15:08] VITALS: BP 138/78
[2024-11-02] MEDS: SENOKOT-S 1 TABLET PO (19:38)
[2024-11-02] MEDS: MIRALAX 17 GRAMS PO (19:39)
[2024-11-02] MEDS: MELATONIN 5 MG PO (22:42)
[2024-11-02 23:00] VITALS: BP 119/91
[2024-11-03] MEDS: MOTRIN 200 MG PO (04:14)
[2024-11-03] MEDS: ROBITUSSIN AC 10 ML PO ×3 (04:17→12:20)
[2024-11-03] MEDS: XOPENEX 0.63 MG INHALANT SOLUTION INH (04:25)
[2024-11-03] MEDS: DUONEB 3 ML INH ×2 (07:25→11:09)
[2024-11-03] MEDS: PULMICORT 0.5 MG INH (07:25)
[2024-11-03 07:38] VITALS: BP 113/68
[2024-11-03] MEDS: CLARITIN 10 MG PO (08:18)
[2024-11-03] MEDS: PRISTIQ 25 MG PO (08:18)
[2024-11-03] MEDS: SINGULAIR 10 MG PO (08:18)
[2024-11-03] MEDS: PROTONIX 20 MG PO (08:18)
[2024-11-03] MEDS: OSCAL CAL 500 500 MG PO (08:18)
[2024-11-03] MEDS: VITAMIN D3 (cholecalciferol) 50 MCG PO (08:18)
[2024-11-03] MEDS: TYLENOL 650 MG PO (08:18)
[2024-11-03] MEDS: LEVAQUIN 500 MG PO (08:19)
[2024-11-03] MEDS: DECADRON 4 MG IV (08:19)
[2024-11-03] MEDS: TESSALON PERLES 200 MG PO (08:19)
--- NOTE | 2024-11-03 09:52 | W.PN.PUL.V3 ---
Today's Communication / Plan
-
Anxious for discharge
Cleared for discharge from a pulmonary perspective
Prednisone 60 mg daily for 3 days, then 50 mg daily for 3 days, then 40 mg daily for 3 days, then etc.
Finite course of levofloxacin-finish a total of 7 days
Discontinue Symbicort-try Trelegy 200-1 puff daily or Breztri 2 puffs twice daily
Continue nebulizers at [id number] times a day
Mucinex dm for the next 2 days and then Mucinex as needed
Continue Singulair
Tessalon pearls as needed
Outpatient pulmonary follow-up- [facility]
Assessment
-
64-year-old woman with history of longstanding asthma, usually well-controlled. Started with symptoms including coughing, chest congestion and shortness of breath about 9 days ago. In the outpatient setting received prednisone and azithromycin
without improvement. She is here for further evaluation.
Acute asthma exacerbation-suspect tracheobronchitis.
Not documented peripheral eosinophilia
Chest x-ray 10/30/2024: Mild right hemidiaphragm elevation. Minimal left basilar opacity suggestive of atelectasis.
RSV negative
Influenza negative
COVID-negative
Normocytic anemia unclear etiology
Conditions present prior admission:
Chronic asthma since age 18 followed at [facility]
Symbicort/montelukast/Flonase
Prior history of right breast lumpectomy
History of bowel resection for diverticulosis 2013
Plan
Respiratory status continues to improve with occasional coughing paroxysms, difficulties mobilizing secretions-occasionally yellow mucus production
Supplemental oxygen as needed-attempt to wean to room air
Mucolytic's
Singulair continues
Decadron-change to prednisone 60 mg with slow taper in the next 24 hours
On Symbicort at home-on hold
Claritin continues
Pulmicort nebulizers
DuoNebs
Antitussives
Analgesia per primary service
Saline nasal irrigations
Cultures reviewed
Sputum with usual respiratory brie
Levofloxacin-finite course
DVT prophylaxis-heparin subcu.
Would recommend LAMA added to regiment and consideration towards Biologics-reviewed with patient-i.e. Symbicort plus Spiriva or changed to Trelegy 200 or Breztri
Reviewed with nursing as well as primary team
After discharge patient will continue to follow-up with [facility]-offered local [id number] followed with Dr. Osullivan-states did not get return phone calls from nursing in front office secretary in a timely manner that is why she
transferred-she would prefer to be local
Subjective Data
-
Date of Service:
Date of Service: November 03, 2024
Chief Complaint: Pulmonary Follow Up (Acute asthma exacerbation-possible bronchitis) and Dyspnea Follow Up
Subjective:
Feels better, wants to go home, still has coughing paroxysms, occasional yellow sputum production, no chest pain or abdominal pain
Review of Systems
General: Other ( Per HPI)
Objective Data
Data Reviewed
Vital Signs / I&O:
Vital Signs
Temp Pulse Resp BP Pulse Ox
97.9 F 78 16 113/68 93
11/03/24 07:38 11/03/24 07:38 11/03/24 07:38 11/03/24 07:38 11/03/24 07:38
Intake and Output
11/02/24 11/03/24 11/04/24
06:59 06:59 06:59
Intake Total 480 / 480 2520 / 2520
Balance 480 / 480 2520 / 2520
SaO2: 93
Physical Exam
General: Respiratory Distress (n) and Comfortable
HEENT: Normocephalic
Cardiovascular: Regular Rhythm and Murmur (n)
Respiratory: Wheeze (Diffuse forced expiratory), Non-Labored Respirations and Accessory Resp Muscle Use (n)
GI: Soft and Non Distended
Neurology: Awake, Alert, AO x 3 and No Motor Deficits
Skin: Warm, Good Color, Cyanosis (n), Jaundice (n) and Rash (n)
Labs/Micro/Reports
Lab Data
11/02/24 07:00
11/02/24 07:00
Microbiology
10/31/24 11:53 Sputum Respiratory Culture - Final
Usual Respiratory Brie
10/31/24 11:53 Sputum Gram Stain - Final
--- NOTE | 2024-11-03 11:35 | W.PN.HOSP.TC ---
Today's Communication/Plan
-
dc home
Assessment / Plan
Assessment / Plan
Assessment:
Acute asthma exacerbation, suspected tracheobronchitis
Chronic asthma since age 18 followed at [facility]
- dc on steroid taper (Prednisone 60 mg daily for 3 days, then 50 mg daily for 3 days, then 40 mg daily for 3 days etc) per Pulmonary
- continue Levaquin, day 03/23
- continue nebs QID x 1 week, then prn
- continue Tessalon prn
- continue Mucinex
- continue Singular
- will dc Symbicort and try Trelegy 200 - 1 puff daily per pulm recs
- OP pulm f/u locally or [facility]
Prior history of right breast lumpectomy
History of bowel resection for diverticulosis 2013
Anemia
- indices ok
- OP f/u
DVT ppx: SC heparin
Code: Full
More than 30 minutes spent in discharge including
Final examination of the patient
Summarizing hospital stay
Instructions for continuing care to all relevant caregivers
Preparation of discharge records, prescriptions, and referral forms
Total time spent (in minutes):41
Anticipated Discharge: Today
Subjective/Interval History
-
Date of Service: November 03, 2024
no chest, abd pain
occasional coughing paroxysms - much improved
eager for home
Objective Data
-
Vital Signs:
Vital Signs
Temp Pulse Resp BP Pulse Ox
97.9 F 85 14 113/68 93
11/03/24 07:38 11/03/24 11:12 11/03/24 11:12 11/03/24 07:38 11/03/24 09:52
I&O
11/02/24 11/03/24 11/04/24
06:59 06:59 06:59
Intake Total 480 / 480 2520 / 2520
Balance 480 / 480 2519 / 2519
Physical Exam
-
General: No Apparent Distress
HEENT: Normocephalic and Atraumatic
Respiratory: Negative Wheezes
Cardiac: Regular Rhythm and S1/S2
GI: Soft and Nontender
Neuro: AO x 3
Psych: Calm
Data Reviewed
-
Total Time Spent with Patient (in minutes): 41
Labs: Labs Reviewed by me
--- NOTE | 2024-11-03 11:45 | W.DS.TRANS ---
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
-
Discharge Instructions:
Discharge Diagnosis/Procedures tracheobronchitis with acute asthma exacerbation
Diet Regular
Activity As tolerated
Bathing Restrictions None
Instructions:
Stand-Alone Forms:
Changes to Home Medications: No
Discharge Medications:
DC Medications w/original date entered in [employer]
biotin 1,000 mcg chewable tablet 1,000 mcg PO DAILY Supplement 08/06/23
calcium carbonate (Calcium 600) 600 mg PO DAILY Supplement 08/06/23
desvenlafaxine succinate 25 mg tablet,extended release 24 hr (Pristiq) 25 mg PO DAILY Depression 08/06/23
cholecalciferol (vitamin D3) 50 mcg (2,000 unit) tablet 50 mcg PO DAILY Supplement 10/30/24
fluticasone propionate 50 mcg/actuation nasal spray,suspension 1 spray intranasal DAILY Allergies 10/30/24
benzonatate 100 mg capsule 200 mg (2 x 100 mg) PO TIDPRN PRN COUGH #20 caps 11/03/24
codeine 10 mg-guaifenesin 100 mg/5 mL oral liquid 10 ml PO Q4HPRN PRN cough #120 mL 11/03/24
fluticasone fur. 200 mcg-umeclid 62.5 mcg-vilant 25 mcg inhalat.powder (Trelegy Ellipta) 1 inh inhalation DAILY #60 ea 11/03/24
ipratropium 0.5 mg-albuterol 3 mg (2.5 mg base)/3 mL nebulization soln 3 ml inhalation R QID #90 mL 11/03/24
levofloxacin 500 mg tablet 500 mg PO DAILY #2 tabs 11/03/24
montelukast 10 mg tablet (Singulair) 10 mg PO DAILY Lung/Breathing Issues #30 tabs 11/03/24
pantoprazole 20 mg tablet,delayed release 20 mg PO DAILY #30 tabs 11/03/24
prednisone 10 mg tablet 10 mg PO DIRECTED #63 tabs 11/03/24
Home Medication Changes
Pending Results: No
Total time spent discharging patient (in min): 41
--- NOTE | 2024-11-03 12:49 | CM ---
MD entered order for discharge.
spoke with pt she said she was ready for dc.
Her Edy will drive her home.
Offered VN she declined need.
PLAN Home no needs
[2024-11-03 13:21] VITALS: BP 115/70
== END 2024-11-03 13:21 | disposition home or self-care (01) | DRG 202 ==
LOC: 3 WEST ACU 12:30
PROVIDERS: ADMITTING PHYSICIAN Internal Medicine; ATTENDING PHYSICIAN Internal Medicine; CONSULT PHYSICIAN Internal Medicine Critical Care Medicine; EMERGENCY PHYSICIAN Emergency Medicine
DX: J20.9 Acute bronchitis, unspecified (principal); J45.901 Unspecified asthma with (acute) exacerbation; D64.9 Anemia, unspecified; R59.0 Localized enlarged lymph nodes; Z88.0 Allergy status to penicillin; Z88.1 Allergy status to other antibiotic agents; Z82.5 Family history of asthma and other chronic lower respiratory diseases; Z79.51 Long term (current) use of inhaled steroids; Z11.52 Encounter for screening for COVID-19
CPT/HCPCS: 71046; 80048; 80053; 81003; 82607; 82728; 82746; 83540; 83550; 83735; 85025; 85027; 87070; 87205; 87502; 87807; 87811; 94640; 94644; 96374; 96375; 99285